=== PATIENT | female | born 1970 ===

== ENCOUNTER 2017-03-30 05:39 | Emergency (ER) | payer MEDICAID ==
[2017-03-30 06:00] VITALS: BMI 32.1
[2017-03-30 06:18] LABS: BASO # 0.1 K/uL (0.0-0.2); BASO % 1.3 % (0.0-2.0); EOS # 0.1 K/uL (0.0-0.7); EOS % 1.5 % (0.0-4.0); HEMOGLOBIN 13.2 g/dL (12.0-16.0); LYMPH # 2.4 K/uL (1.0-4.3); LYMPH % 31.4 % (20.0-40.0); MEAN CELL VOLUME 88.6 fl (81.0-99.0); MEAN CORPUSCULAR HEMOGLOBIN 30.1 pg (27.0-31.0); MEAN PLATELET VOLUME 7.5 fl (7.2-11.7); MONO # 0.5 K/uL (0.0-0.8); MONO % 6.9 % (0.0-10.0); NEUT # 4.4 K/uL (1.8-7.0); NEUT % 58.9 % (50.0-75.0); NRBC % 0.2 % (0.0-0.0); RBC 4.38 Mil/uL (3.80-5.20); RED CELL DISTRIBUTION WIDTH 13.5 % (11.5-14.5); WHITE BLOOD COUNT 7.5 K/uL (4.8-10.8)
[2017-03-30 06:22] LABS: VENOUS BLOOD GAS BASE EXCESS 6.4 mmol/L (0.0-2.0); VENOUS BLOOD GAS PCO2 48 mmHg (40-60); VENOUS BLOOD GAS PO2 42 mm/Hg (30-55); VENOUS BLOOD PH 7.43 (7.32-7.43)
[2017-03-30 06:27] LABS: ALB/GLOB RATIO 1.2 (1.0-2.1); ALBUMIN 4.2 g/dL (3.5-5.0); ALT/SGPT 48 U/L (9-52); AST/SGOT 25 U/L (14-36); BLOOD UREA NITROGEN 14 mg/dl (7-17); CALCIUM 9.3 mg/dL (8.4-10.2); GFR AFRICAN-AMERICAN > 60; GFR NON-AFRICAN AMERICAN > 60; LIPASE 127 U/L (23-300)
[2017-03-30 06:55] LABS: SQUAMOUS EPITHIAL 11 /hpf (0-5); URINE BACTERIA OCC (<OCC); URINE BILIRUBIN NEGATIVE (NEGATIVE); URINE BLOOD NEGATIVE (NEGATIVE); URINE CLARITY CLOUDY (Clear); URINE COLOR YELLOW (YELLOW); URINE GLUCOSE (UA) NEG (Normal); URINE LEUKOCYTE ESTERASE NEG Leu/uL (Negative); URINE NITRATE NEGATIVE (NEGATIVE); URINE PROTEIN 30 mg/dL (NEGATIVE); URINE UROBILINOGEN 0.2-1.0 mg/dL (0.2-1.0)
--- NOTE | 2017-03-30 06:57 | ED PDOC ---
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 Patient has recent admission with full GI workup at [facility] (Formerly [facility]) and was diagnosed with constipation and small lesion. Denies nausea, vomiting, diarrhea, constipation or any further medical complaints. PMD: Saqib Rolon MD Past Medical History Reviewed: Historical Data, Nursing Documentation, Vital Signs Vital Signs: Last Vital Signs Temp 98.3 F 03/30/17 10:15 Pulse 74 03/30/17 10:15 Resp 18 03/30/17 10:15 BP 110/68 03/30/17 10:15 Pulse Ox 98 03/30/17 10:15 - Medical History PMH: CHF, HTN, Hypercholesterolemia, Seizures, Chronic Pain (right hip secondary to surgery) Denies: Chronic Kidney Disease - Surgical History Other surgeries: V/P shunt - Family History Family History: States: Unknown Family Hx - Social History Current smoker - smoking cessation education provided: No (Former smoker) Ex-Smoker (has not smoked in the last 12 months): No Alcohol: None - Immunization History Hx Tetanus Toxoid Vaccination: No Hx Influenza Vaccination: Yes Hx Pneumococcal Vaccination: No - Home Medications Home Medications: Ambulatory Orders Medication Instructions Recorded Valsartan 320 mg PO DAILY 07/01/15 Docusate [Colace] 100 mg PO BID #60 cap 09/17/16 Allopurinol [Zyloprim] 300 mg PO DAILY 12/15/16 Atorvastatin [Lipitor] 40 mg PO HS 12/15/16 Meloxicam [Mobic] 15 mg PO DAILY 12/15/16 Mv,Min10/Folic Acid/D3/Ala/Lut 1 tab PO DAILY 12/15/16 [Strovite One Caplet] Pantoprazole [Protonix EC Tab] 20 mg PO DAILY #30 ect 12/15/16 Valacyclovir HCl [Valtrex] 1,000 mg PO DAILY 12/15/16 amLODIPine [Norvasc] 10 mg PO DAILY 12/15/16 hydroCHLOROthiazide [Hydrodiuril] 25 mg PO DAILY 12/15/16 Ibuprofen [Motrin] 1 tab PO TID PRN #30 tab 03/05/17 traMADol [Ultram] 50 mg PO Q8 #10 tab 03/30/17 - Allergies Allergies/Adverse Reactions: Allergies Allergy/AdvReac Type Severity Reaction Status Date / Time nyquil Allergy URTICARIA Uncoded 03/30/17 06:00 Review of Systems ROS Statement: Except As Marked, All Systems Reviewed And Found Negative (As per HPI, otherwise negative) Gastrointestinal: Positive for: Abdominal Pain (Right upper quadrant pain). Negative for: Nausea, Vomiting, Diarrhea, Constipation Physical Exam - Reviewed Nursing Documentation Reviewed: Yes Vital Signs Reviewed: Yes - Physical Exam Appears: Positive for: Well, Non-toxic, No Acute Distress Head Exam: Positive for: ATRAUMATIC, NORMAL INSPECTION, NORMOCEPHALIC Skin: Positive for: Normal Color, Warm, Dry Eye Exam: Positive for: EOMI, Normal appearance, PERRL ENT: Positive for: Normal ENT Inspection Neck: Positive for: Normal, Painless ROM Cardiovascular/Chest: Positive for: Regular Rate, Rhythm. Negative for: Murmur Respiratory: Positive for: Normal Breath Sounds. Negative for: Accessory Muscle Use, Respiratory Distress Gastrointestinal/Abdominal: Positive for: Tenderness (Diffuse minimal tenderness ), Distended (Mild abdominal distension) Back: Positive for: Normal Inspection Extremity: Positive for: Normal ROM. Negative for: Deformity Neurologic/Psych: Positive for: Alert, Oriented (x3) - Laboratory Results Result Diagrams: 03/30/17 06:15 03/30/17 06:15 - ECG O2 Sat by Pulse Oximetry: 97 (RA) Pulse Ox Interpretation: Normal Medical Decision Making Medical Decision Making: Time: 06:08 Initial Impression: constipation Plan: Drug screen Urine dipstick Urine Obstructive series x-ray Enulos 20gm PO Phosphate Enema 135 ml MI Urinalysis US Gallbladder and Hepatic Time: 07:00 Patient is signed out to Dr. Valenzuela pending US, labs, reevaluation. Scribe Attestation: Documented by Jeni Zaragoza acting as a scribe for Ricky Coates MD. Scribbrittnee Attestation: All medical record entries made by the Scribe were at my direction and personally dictated by me. I have reviewed the chart and agree that the record accurately reflects my personal performance of the history, physical exam, medical decision making, and the department course for this patient. I have also personally directed, reviewed, and agree with the discharge instructions and disposition. Disposition - Clinical Impression Clinical Impression: Fatty liver - Patient ED Disposition Is Patient to be Admitted: Transfer of Care - Disposition Referrals: [facility] [Outside] Loren CAR,MD Landon [Medical Doctor] - Disposition: Transfer of Care Disposition Time: 07:00 Condition: FAIR Prescriptions: traMADol [Ultram] 50 mg PO Q8 #10 tab Instructions: Non-Alcoholic Fatty Liver Disease (ED) Forms: [employer] (South Sudanese) Print Language: SETSWANA
[2017-03-30] MEDS ORDERED: Potassium Chloride 20 mEq ER Tab PO ONE ×2 (07:01→07:18)
[2017-03-30 07:10] LABS: BARBITURATES, UR NEGATIVE (NEGATIVE); BENZODIAZEPINES, UR NEGATIVE (NEGATIVE); OPIATES, UR NEGATIVE (NEGATIVE); PHENCYCLIDINE, UR NEGATIVE (NEGATIVE)
--- NOTE | 2017-03-30 09:28 | RAD ---
PROCEDURE: Radiographs of the chest and abdomen (obstructive series) HISTORY: abd pain COMPARISON: No prior. TECHNIQUE: AP radiograph of the chest, with upright and supine radiographs of the abdomen. FINDINGS: CHEST: Lungs: . Poor inspiration with low lung volumes, crowded bronchovascular markings and mild bibasilar atelectasis. . Cardiovascular: Normal size heart. No pulmonary vascular congestion. Pleura: No pleural fluid. No pneumothorax. Other findings: Incidental note made of a tubing apparently within the subcutaneous tissues extending from the to base of the neck over the right at lana thorax and right upper abdomen. This probably represents a NUMERICAL ANALYSIS GROUP MANAGER shunt tube however clinical correlation recommended. . ABDOMEN AND PELVIS: Bowel: No evidence acute mechanical bowel obstruction. Stool and air seen throughout the large bowel. N. Free air: None. Bones: Unremarkable. Other findings: Terminal and of presumed NUMERICAL ANALYSIS GROUP MANAGER shunt tube in the seen overlying the left parasagittal lower abdomen at approximately the L4-L5 level. . IMPRESSION: Poor inspiration with low lung volumes, crowded bronchovascular markings and mild bibasilar atelectasis. No evidence acute mechanical bowel obstruction stool and air seen throughout the large bowel. In situ NUMERICAL ANALYSIS GROUP MANAGER shunt tube
--- NOTE | 2017-03-30 09:43 | US ---
HISTORY: RUQ pain COMPARISON: None. TECHNIQUE: Sonographic evaluation of the right upper quadrant of the abdomen. FINDINGS: LIVER: Liver exhibits normal size measuring approximately 15.1 cm in CC dimension. . Liver demonstrates smooth contour however slight increased echotexture suggesting fatty infiltration. Other infiltrative hepatocellular disease process not excluded. . No mass. No intrahepatic bile duct dilatation. GALLBLADDER: No evidence of intraluminal gallbladder calculi. No pericholecystic fluid collections or sonographic Linda sign. COMMON BILE DUCT: Measures 4.5 mm. No stones. No dilatation. PANCREAS: Unremarkable as visualized. No mass. No ductal dilatation. RIGHT KIDNEY: Measures 11.2 x 4.0 x 4.7 cm in length. Normal echogenicity. No calculus, mass, or hydronephrosis. AORTA: No aneurysmal dilatation. IVC: Unremarkable. OTHER FINDINGS: None . IMPRESSION: Fatty infiltration however other infiltrative hepatocellular disease process not excluded. No evidence cholelithiasis. No sonographic Linda sign.
--- NOTE | 2017-03-30 09:56 | ED PDOC ---
- Laboratory Results Result Diagrams: 03/30/17 06:15 03/30/17 06:15 - ECG O2 Sat by Pulse Oximetry: 97 (RA) Disposition - Clinical Impression Clinical Impression: Fatty liver - POA Present On Arrival: None - Disposition Referrals: [facility] [Outside] Loren CAR,MD Landon [Medical Doctor] - Disposition: Routine/Home Disposition Time: 09:55 Condition: FAIR Prescriptions: traMADol [Ultram] 50 mg PO Q8 #10 tab Instructions: Non-Alcoholic Fatty Liver Disease (ED) Forms: [employer] (Thai) Print Language: GREEK
[2017-03-30 10:16] VITALS: BP 110/68; PULSE 74; RESP 18; TEMP 98.3
[2017-03-30 20:54] VITALS: O2SAT 97
== END 2017-03-30 10:20 | disposition home or self-care (01) ==
LOC: H.ER 05:39
DX: K76.0 Fatty (change of) liver, not elsewhere classified (principal); Z98.2 Presence of cerebrospinal fluid drainage device; I11.0 Hypertensive heart disease with heart failure; E78.00 Pure hypercholesterolemia, unspecified; I50.9 Heart failure, unspecified; G89.29 Other chronic pain

== ENCOUNTER 2018-05-10 05:39 | Emergency (ER) | payer MEDICAID ==
[2018-05-10 05:39] VITALS: BMI 195.0
--- NOTE | 2018-05-10 06:34 | ED PDOC ---
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 Patient reports she was coming off the upper [facility] at the [facility] when she fell on her back. Patient reports she fell flat on her back and hit her head. Denies loss of consciou sness, nausea, or vomiting. Patient is complaining of back pain and headache. Past Medical History Reviewed: Historical Data, Nursing Documentation, Vital Signs Vital Signs: Last Vital Signs Temp 98.1 F 05/10/18 05:48 Pulse 71 05/10/18 05:48 Resp 16 05/10/18 05:48 BP 95/63 L 05/10/18 05:48 Pulse Ox 97 05/10/18 05:48 - Medical History PMH: HTN, Hypercholesterolemia, Seizures (childhood no lomger), Chronic Pain (right hip secondary to surgery) Denies: Chronic Kidney Disease - Surgical History Surgical History: No Surg Hx - Family History Family History: States: Unknown Family Hx - Living Arrangements Living Arrangements: Other (Homeless) - Social History Current smoker - smoking cessation education provided: No Alcohol: None Drugs: Denies - Immunization History Hx Tetanus Toxoid Vaccination: No Hx Influenza Vaccination: Yes Hx Pneumococcal Vaccination: No - Home Medications Home Medications: Ambulatory Orders Medication Instructions Recorded Valsartan 320 mg PO DAILY 07/01/15 Docusate [Colace] 100 mg PO BID #60 cap 09/17/16 Allopurinol [Zyloprim] 300 mg PO DAILY 12/15/16 Atorvastatin [Lipitor] 40 mg PO HS 12/15/16 Mv,Min10/Folic Acid/D3/Ala/Lut 1 tab PO DAILY 12/15/16 [Strovite One Caplet] Pantoprazole [Protonix EC Tab] 20 mg PO DAILY #30 ect 12/15/16 amLODIPine [Norvasc] 10 mg PO DAILY 12/15/16 Ibuprofen [Motrin] 1 tab PO TID PRN #30 tab 03/05/17 traMADol [Ultram] 50 mg PO Q8 PRN #15 tab 03/08/18 Ibuprofen [Motrin] 600 mg PO Q8 PRN 05/02/17 Potassium Chloride 10 meq PO DAILY 05/02/17 Meclizine [Antivert] 25 mg PO TID #15 tab 02/22/18 Ibuprofen [Motrin] 600 mg PO TID #15 tab 03/07/18 Ibuprofen [Motrin] 600 mg PO Q6H PRN #20 tab 05/10/18 - Allergies Allergies/Adverse Reactions: Allergies Allergy/AdvReac Type Severity Reaction Status Date / Time nyquil Allergy Intermediate hives Uncoded 03/07/18 15:12 Review of Systems ROS Statement: Except As Marked, All Systems Reviewed And Found Negative Gastrointestinal: Negative for: Nausea, Vomiting Musculoskeletal: Positive for: Back Pain Neurological: Positive for: Headache Physical Exam - Reviewed Nursing Documentation Reviewed: Yes Vital Signs Reviewed: Yes - Physical Exam Appears: Positive for: Uncomfortable Head Exam: Negative for: ATRAUMATIC (hematoma to right parietal scalp) Skin: Positive for: Normal Color, Warm, DRY Eye Exam: Positive for: EOMI, Normal appearance, PERRL ENT: Positive for: Normal ENT Inspection Neck: Positive for: Normal, Painless ROM Cardiovascular/Chest: Positive for: Regular Rate, Rhythm. Negative for: Murmur Respiratory: Positive for: Normal Breath Sounds. Negative for: Respiratory Distress Gastrointestinal/Abdominal: Positive for: Normal Exam, Soft. Negative for: Tenderness Back: Positive for: Normal Inspection. Negative for: Vertebral Tenderness (No palpable tenderness of deformity of T-spine, L-spine, or C-spine) Extremity: Positive for: Normal ROM. Negative for: Pedal Edema, Deformity Neurological/Psych: Positive for: Awake, Alert, Normal Tone. Negative for: Motor/Sensory Deficits - Laboratory Results Result Diagrams: 05/10/18 06:20 05/10/18 06:20 - ECG O2 Sat by Pulse Oximetry: 97 (RA) Pulse Ox Interpretation: Normal Medical Decision Making Medical Decision Making: Time: 06:11 Impression: 47 y/o s/p head and back injury secondary to fall Initial Plan: * CT C Spine * CT Head * CT L Spine * CT T Spine * Labs * Morphine 07:00 Patient care endorsed to Dr. Rosales pending CT and labs. Scribe Attestation: Documented by Grayson Mehta, acting as a scribe Anita Mccauley MD Provider Scribe Attestation: All medical record entries made by the Scribe were at my direction and personally dictated by me. I have reviewed the chart and agree that the record accurately reflects my personal performance of the history, physical exam, medical decision making, and the department course for this patient. I have also personally directed, reviewed, and agree with the discharge instructions and disposition Disposition - Clinical Impression Clinical Impression: Head injury, Back pain - Patient ED Disposition Is Patient to be Admitted: Transfer of Care - Disposition Referrals: [facility] [Outside] Disposition: Transfer of Care Disposition Time: 07:00 Condition: STABLE Prescriptions: Ibuprofen [Motrin] 600 mg PO Q6H PRN #20 tab PRN Reason: Pain, Moderate (4-7) Instructions: Upper Back Pain, Minor Head Injury Forms: [employer] (Armenian) Patient Signed Over To: Anjelica Rosales Handoff Comments: CTs, labs
[2018-05-10 06:42] LABS: BASO # 0.1 K/uL (0.0-0.2); BASO % 0.9 % (0.0-2.0); EOS # 0.1 K/uL (0.0-0.7); EOS % 1.7 % (0.0-4.0); HEMOGLOBIN 12.3 g/dL (12.0-16.0); LYMPH # 2.2 K/uL (1.0-4.3); LYMPH % 38.2 % (20.0-40.0); MEAN CELL VOLUME 87.5 fl (81.0-99.0); MEAN CORPUSCULAR HEMOGLOBIN 29.4 pg (27.0-31.0); MEAN CORPUSCULAR HGB CONC 33.6 g/dL (33.0-37.0); MEAN PLATELET VOLUME 7.3 fl (7.2-11.7); MONO # 0.5 K/uL (0.0-0.8); MONO % 8.7 % (0.0-10.0); NEUT # 2.9 K/uL (1.8-7.0); NEUT % 50.5 % (50.0-75.0); NRBC % 0.2 % (0.0-0.0); RBC 4.2 Mil/uL (3.80-5.20); RED CELL DISTRIBUTION WIDTH 12.9 % (11.5-14.5); WHITE BLOOD COUNT 5.7 K/uL (4.8-10.8)
[2018-05-10 07:04] LABS: ALB/GLOB RATIO 1.2 (1.0-2.1); ALBUMIN 3.8 g/dL (3.5-5.0); ALT/SGPT 52 U/L (9-52); AST/SGOT 31 U/L (14-36); BLOOD UREA NITROGEN 12 mg/dl (7-17); CALCIUM 9.2 mg/dL (8.4-10.2); GFR NON-AFRICAN AMERICAN > 60
--- NOTE | 2018-05-10 07:10 | ED PDOC ---
- Laboratory Results Result Diagrams: 05/10/18 06:20 05/10/18 06:20 Lab Results: Total Bilirubin 0.3 mg/dl (0.2-1.3) 05/10/18 06:20 AST 31 U/L (14-36) 05/10/18 06:20 ALT 52 U/L (9-52) 05/10/18 06:20 Alkaline Phosphatase 91 U/L (38-126) 05/10/18 06:20 Total Protein 6.9 G/DL (6.3-8.2) 05/10/18 06:20 Albumin 3.8 g/dL (3.5-5.0) 05/10/18 06:20 Globulin 3.2 gm/dL (2.2-3.9) 05/10/18 06:20 Albumin/Globulin Ratio 1.2 (1.0-2.1) 05/10/18 06:20 - ECG O2 Sat by Pulse Oximetry: 97 (RA) Pulse Ox Interpretation: Normal Medical Decision Making Medical Decision Making: Time: 7:00 Patient presenting for evaluation after fall was signed out to me by Dr. Mccauley pending imaging and reevaluation. Accession No. : [id number] Patient Name / ID : JUVENAL COURTNEY / [id number] Exam Date : 05/10/2018 08:00:24 ( Approved ) Study Comment : Sex / Age : F / 47Y Creator : Dalton Waters MD Dictator : Dalton Waters MD Dermatopathologist : Solutions Operator : Dalton Waters MD Approver2 : Report Date : 05/10/2018 09:07:32 My Comment : Date of service: 05/10/2018 PROCEDURE: CT HEAD WITHOUT CONTRAST. HISTORY: Headache COMPARISON: No prior study available for comparison. TECHNIQUE: Axial computed tomography images were obtained through the head/brain without intravenous contrast. Radiation dose: Total exam DLP = 886.64 mGy-cm. This CT exam was performed using one or more of the following dose reduction techniques: Automated exposure control, adjustment of the mA and/or kV according to patient size, and/or use of iterative reconstruction technique. FINDINGS: HEMORRHAGE: No acute parenchymal, subarachnoid or extra-axial hemorrhage. BRAIN: There is an in situ POTATO GRADER shunt tube which traverses through the right posterior parietal calvarium, right posterior parietal lobe and into the posterior margin of the right lateral ventricle terminating midline. The 3rd and lateral ventricles are moderately to significantly dilated. There is enlargement of the suprasellar cistern with what could represent an arachnoid cyst extending superiorly into the region of the 3rd ventricle and foramina Lassiter. There are scattered areas of low attenuation seen within the deep and subcortical white matter of both cerebral hemispheres. VENTRICLES: As above. CALVARIUM: Unremarkable. PARANASAL SINUSES: Unremarkable as visualized. No significant inflammatory changes. MASTOID AIR CELLS: Unremarkable as visualized. No inflammatory changes. OTHER FINDINGS: None. IMPRESSION: In situ POTATO GRADER shunt tube with moderate to significant dilatation of the 3rd and lateral ventricles. 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 Scattered areas of low attenuation within the deep and subcortical white matter both cerebral hemispheres.. No acute intracranial hemorrhage. Accession No. : [id number] Patient Name / ID : JUVENAL COURTNEY / [id number] Exam Date : 05/10/2018 08:03:21 ( Approved ) Study Comment : Sex / Age : F / 47Y Creator : Dalton Waters MD Dictator : Dalton Waters MD Dermatopathologist : Solutions Operator : Dalton Waters MD Approver2 : Report Date : 05/10/2018 09:15:02 My Comment : Date of service: 05/10/2018 PROCEDURE: CT Cervical Spine without contrast HISTORY: Neck injury COMPARISON: None available. TECHNIQUE: Axial computed tomography images were obtained of the cervical spine without the use of intravenous contrast. Coronal and sagittal reformatted images were created and reviewed. Radiation dose: Total exam DLP = 361.98 mGy-cm. This CT exam was performed using one or more of the following dose reduction techniques: Automated exposure control, adjustment of the mA and/or kV according to patient size, and/or use of iterative reconstruction technique. FINDINGS: VERTEBRAE: No acute compression fractures no retropulsed fragments. Vertebral bodies exhibit normal stature. There straightening of the normal cervical lordosis could be due to patient positioning in the gantry however underlying element of muscle spasm may contribute. DISCS/SPINAL CANAL/NEURAL FORAMINA: Minor multilevel degenerative spondylosis present. There is minor At the C2-C3 level, there is adequate disc height. No disc herniation or sign ificant disc bulge. Central canal and exit foramina adequate. At the C3-C4 level, there is adequate disc height. Small central and bilateral disc bulge compresses the ventral surface of the thecal sac and spinal cord. Central canal is mildly narrowed. Exit foramina appear adequate. At the C4-C5 level, there is mild disc space narrowing. Minimal broad-based bulge of the posterior annulus is present. Disc results in mild canal narrowing and mild flattening of the ventral surface of the spinal cord. Exit foramina appear adequate. At the C5-C6 level, there is mild disc space narrowing. Small broad-based disc bulge also results in mild canal narrowing and cord compression. Similar changes seen at the C6-C7 level. PARASPINAL SOFT TISSUES: Unremarkable. OTHER FINDINGS: Note made of a descending POTATO GRADER shunt to within the subcutaneous tissues right aspect of the neck IMPRESSION: No acute fractures. Mild multilevel degenerative spondylosis. Accession No. : [id number] Patient Name / ID : JUVENAL COURTNEY / [id number] Exam Date : 05/10/2018 08:09:02 ( Approved ) Study Comment : Sex / Age : F / 47Y Creator : Dalton Waters MD Dictator : Dalton Waters MD Dermatopathologist : Solutions Operator : Dalton Waters MD Approver2 : Report Date : 05/10/2018 09:27:33 My Comment : Date of service: 05/10/2018 PROCEDURE: CT Thoracic Spine without contrast HISTORY: Fall COMPARISON: None available. TECHNIQUE: Axial computed tomography images were obtained of the thoracic spine without intravenous contrast. Coronal and sagittal reformatted images were created and reviewed. Radiation dose: Total exam DLP = 873.17 mGy-cm. This CT exam was performed using one or more of the following dose reduction techniques: Automated exposure control, adjustment of the mA and/or kV according to patient size, and/or use of iterative reconstruction technique. FINDINGS: VERTEBRAE: No acute compression fractures no retropulsed fragments. Vertebral bodies exhibit normal stature. Vertebral bodies and facets normally aligned. DISCS/SPINAL CANAL/NEURAL FORAMINA: Minor multilevel degenerative spondylosis is present with small marginal anterior osteophyte formation.. No disc herniation or significant disc bulges are identified. The overall central bony canal appears adequate throughout. The exit foramina are also adequate. PARASPINAL SOFT TISSUES: Unremarkable. OTHER FINDINGS: Note made of a descending right sided POTATO GRADER shunt tube IMPRESSION: No acute fractures. Minor multilevel degenerative spondylosis Accession No. : [id number] Patient Name / ID : JUVENAL COURTNEY / [id number] Exam Date : 05/10/2018 08:11:52 ( Approved ) Study Comment : Sex / Age : F / 47Y Creator : Dalton Waters MD Dictator : Dalton Waters MD Dermatopathologist : Solutions Operator : Dalton Waters MD Approver2 : Report Date : 05/10/2018 09:24:03 My Comment : Date of service: 05/10/2018 PROCEDURE: CT Lumbar Spine without contrast HISTORY: Pain COMPARISON: None available. TECHNIQUE: Axial computed tomography images were obtained of the lumbar spine without the use of intravenous contrast. Coronal and sagittal reformatted images were created and reviewed. Radiation dose: Total exam DLP = 744.86 mGy-cm. This CT exam was performed using one or more of the following dose reduction techniques: Automated exposure control, adjustment of the mA and/or kV according to patient size, and/or use of iterative reconstruction technique. FINDINGS: VERTEBRAE: No acute compression fractures no retropulsed fragments. Vertebral bodies exhibit normal stature. Vertebral bodies and facets normally aligned. DISCS/SPINAL CANAL/NEURAL FORAMINA: L1-2: No disc herniation or significant disc bulge L2-3: No disc herniation or significant disc bulge. Central canal appears adequate. Proximal exit foramina are marginal L3-4: Mild posterior disc space narrowing. Small broad-based bulge of the posterior annulus. Central canal appears adequate exit foramina narrowed facets also mildly overgrown. Exit foramina are stenotic. L4-5: There is adequate disc height. Broad-based though asymmetric disc bulge ridge complex larger on the right than left is seen extending into the proximal margins of both exit foramina. The disc compresses the ventral surface of the thecal sac more so on the right side with bilateral lateral recess stenosis. Facets are slightly overgrown. The exit foramina are stenotic bilaterally. L5-S1: There is mild disc space narrowing more so along the posterior disc ma rgin with vacuum disc phenomena. Small broad-based bulge of the posterior annulus appears to flatten the ventral surface of the thecal sac. Facets are slightly hypertrophic. The exit foramina are stenotic bilaterally PARASPINAL SOFT TISSUES: Unremarkable. OTHER FINDINGS: None. IMPRESSION: No acute fractures. Multilevel degenerative spondylosis most notably affecting the L4-L5 level. There are also bilateral foraminal stenotic changes seen at several levels. Scribe Attestation: Documented by Lorraine Davis, acting as a scribe for Anjelica Rosales MD. Provider Scribe Attestation: All medical record entries made by the Scribe were at my direction and personally dictated by me. I have reviewed the chart and agree that the record accurately reflects my personal performance of the history, physical exam, medical decision making, and the department course for this patient. I have also personally directed, reviewed, and agree with the discharge instructions and disposition. Disposition - Clinical Impression Clinical Impression: Head injury, Back pain - POA Present On Arrival: Falls Or Trauma - Disposition Referrals: [facility] [Outside] Disposition: Routine/Home Disposition Time: 10:40 Condition: STABLE Prescriptions: Ibuprofen [Motrin] 600 mg PO Q6H PRN #20 tab PRN Reason: Pain, Moderate (4-7) Instructions: Upper Back Pain, Minor Head Injury Forms: [facility] (Khmer)
[2018-05-10 08:30] LABS: SQUAMOUS EPITHIAL 3 /hpf (0-5); URINE BACTERIA RARE (<OCC); URINE BILIRUBIN NEGATIVE (NEGATIVE); URINE BLOOD NEGATIVE (NEGATIVE); URINE CLARITY SLIGHTY-CLOUDY (Clear); URINE COLOR YELLOW (YELLOW); URINE GLUCOSE (UA) NEG (NEGATIVE); URINE LEUKOCYTE ESTERASE NEG Leu/uL (Negative); URINE PROTEIN NEGATIVE (NEGATIVE); URINE UROBILINOGEN 0.2-1.0 mg/dL (0.2-1.0)
--- NOTE | 2018-05-10 09:10 | CT ---
Date of service: 05/10/2018 PROCEDURE: CT HEAD WITHOUT CONTRAST. HISTORY: Headache COMPARISON: No prior study available for comparison. TECHNIQUE: Axial computed tomography images were obtained through the head/brain without intravenous contrast. Radiation dose: Total exam DLP = 886.64 mGy-cm. This CT exam was performed using one or more of the following dose reduction techniques: Automated exposure control, adjustment of the mA and/or kV according to patient size, and/or use of iterative reconstruction technique. FINDINGS: HEMORRHAGE: No acute parenchymal, subarachnoid or extra-axial hemorrhage. BRAIN: There is an in situ HYDROGEOLOGIST shunt tube which traverses through the right posterior parietal calvarium, right posterior parietal lobe and into the posterior margin of the right lateral ventricle terminating midline. The 3rd and lateral ventricles are moderately to significantly dilated. There is enlargement of the suprasellar cistern with what could represent an arachnoid cyst extending superiorly into the region of the 3rd ventricle and foramina Lass[place]. There are scattered areas of low attenuation seen within the deep and subcortical white matter of both cerebral hemispheres. VENTRICLES: As above. CALVARIUM: Unremarkable. PARANASAL SINUSES: Unremarkable as visualized. No significant inflammatory changes. MASTOID AIR CELLS: Unremarkable as visualized. No inflammatory changes. OTHER FINDINGS: None. IMPRESSION: In situ HYDROGEOLOGIST shunt tube with moderate to significant dilatation of the 3rd and lateral ventricles. 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 Scattered areas of low attenuation within the deep and subcortical white matter both cerebral hemispheres.. No acute intracranial hemorrhage.
--- NOTE | 2018-05-10 09:20 | CT ---
Date of service: 05/10/2018 PROCEDURE: CT Cervical Spine without contrast HISTORY: Neck injury COMPARISON: None available. TECHNIQUE: Axial computed tomography images were obtained of the cervical spine without the use of intravenous contrast. Coronal and sagittal reformatted images were created and reviewed. Radiation dose: Total exam DLP = 361.98 mGy-cm. This CT exam was performed using one or more of the following dose reduction techniques: Automated exposure control, adjustment of the mA and/or kV according to patient size, and/or use of iterative reconstruction technique. FINDINGS: VERTEBRAE: No acute compression fractures no retropulsed fragments. Vertebral bodies exhibit normal stature. There straightening of the normal cervical lordosis could be due to patient positioning in the gantry however underlying element of muscle spasm may contribute. DISCS/SPINAL CANAL/NEURAL FORAMINA: Minor multilevel degenerative spondylosis present. There is minor At the C2-C3 level, there is adequate disc height. No disc herniation or significant disc bulge. Central canal and exit foramina adequate. At the C3-C4 level, there is adequate disc height. Small central and bilateral disc bulge compresses the ventral surface of the thecal sac and spinal cord. Central canal is mildly narrowed. Exit foramina appear adequate. At the C4-C5 level, there is mild disc space narrowing. Minimal broad-based bulge of the posterior annulus is present. Disc results in mild canal narrowing and mild flattening of the ventral surface of the spinal cord. Exit foramina appear adequate. At the C5-C6 level, there is mild disc space narrowing. Small broad-based disc bulge also results in mild canal narrowing and cord compression. Similar changes seen at the C6-C7 level. PARASPINAL SOFT TISSUES: Unremarkable. OTHER FINDINGS: Note made of a descending BAIT PACKER shunt to within the subcutaneous tissues right aspect of the neck IMPRESSION: No acute fractures. Mild multilevel degenerative spondylosis.
--- NOTE | 2018-05-10 09:27 | CT ---
Date of service: 05/10/2018 PROCEDURE: CT Lumbar Spine without contrast HISTORY: Pain COMPARISON: None available. TECHNIQUE: Axial computed tomography images were obtained of the lumbar spine without the use of intravenous contrast. Coronal and sagittal reformatted images were created and reviewed. Radiation dose: Total exam DLP = 744.86 mGy-cm. This CT exam was performed using one or more of the following dose reduction techniques: Automated exposure control, adjustment of the mA and/or kV according to patient size, and/or use of iterative reconstruction technique. FINDINGS: VERTEBRAE: No acute compression fractures no retropulsed fragments. Vertebral bodies exhibit normal stature. Vertebral bodies and facets normally aligned. DISCS/SPINAL CANAL/NEURAL FORAMINA: L1-2: No disc herniation or significant disc bulge L2-3: No disc herniation or significant disc bulge. Central canal appears adequate. Proximal exit foramina are marginal L3-4: Mild posterior disc space narrowing. Small broad-based bulge of the posterior annulus. Central canal appears adequate exit foramina narrowed facets also mildly overgrown. Exit foramina are stenotic. L4-5: There is adequate disc height. Broad-based though asymmetric disc bulge ridge complex larger on the right than left is seen extending into the proximal margins of both exit foramina. The disc compresses the ventral surface of the thecal sac more so on the right side with bilateral lateral recess stenosis. Facets are slightly overgrown. The exit foramina are stenotic bilaterally. L5-S1: There is mild disc space narrowing more so along the posterior disc margin with vacuum disc phenomena. Small broad-based bulge of the posterior annulus appears to flatten the ventral surface of the thecal sac. Facets are slightly hypertrophic. The exit foramina are stenotic bilaterally PARASPINAL SOFT TISSUES: Unremarkable. OTHER FINDINGS: None. IMPRESSION: No acute fractures. Multilevel degenerative spondylosis most notably affecting the L4-L5 level. There are also bilateral foraminal stenotic changes seen at several levels.
--- NOTE | 2018-05-10 09:31 | CT ---
Date of service: 05/10/2018 PROCEDURE: CT Thoracic Spine without contrast HISTORY: Fall COMPARISON: None available. TECHNIQUE: Axial computed tomography images were obtained of the thoracic spine without intravenous contrast. Coronal and sagittal reformatted images were created and reviewed. Radiation dose: Total exam DLP = 873.17 mGy-cm. This CT exam was performed using one or more of the following dose reduction techniques: Automated exposure control, adjustment of the mA and/or kV according to patient size, and/or use of iterative reconstruction technique. FINDINGS: VERTEBRAE: No acute compression fractures no retropulsed fragments. Vertebral bodies exhibit normal stature. Vertebral bodies and facets normally aligned. DISCS/SPINAL CANAL/NEURAL FORAMINA: Minor multilevel degenerative spondylosis is present with small marginal anterior osteophyte formation.. No disc herniation or significant disc bulges are identified. The overall central bony canal appears adequate throughout. The exit foramina are also adequate. PARASPINAL SOFT TISSUES: Unremarkable. OTHER FINDINGS: Note made of a descending right sided BROOMCORN SEEDER shunt tube IMPRESSION: No acute fractures. Minor multilevel degenerative spondylosis
[2018-05-10 10:13] VITALS: BP 110/58; PULSE 62; RESP 18; TEMP 98.9
[2018-05-11 21:20] VITALS: O2SAT 97
== END 2018-05-10 10:55 | disposition home or self-care (01) ==
LOC: H.ER 05:39
DX: S09.90XA Unspecified injury of head, initial encounter (principal); M54.9 Dorsalgia, unspecified; E11.9 Type 2 diabetes mellitus without complications; I10 Essential (primary) hypertension; S39.92XA Unspecified injury of lower back, initial encounter; Z59.0 Homelessness; Z98.2 Presence of cerebrospinal fluid drainage device; W19.XXXA Unspecified fall, initial encounter
CPT/HCPCS: 70450; 72125; 72128; 72131; 80053; 81003; 81025; 85025; 96374; 99285; J2270